=== PATIENT | female | born 1970 | race Caucasian/White ===

== ENCOUNTER 2021-07-15 17:16 | Emergency (ER) | payer OTHER ==
[~2021-07-15] VITALS: Ht 160 cm; Wt 65.8 kg
[2021-07-15] MEDS ORDERED: DICLOFENAC POTA50 MG PO (23:30)
[2021-07-15] MEDS ORDERED: ORPHENADRINE C100 MG PO (23:30)
== END 2021-07-15 23:44 ==
LOC: ER 17:16
DX: S43.014A Anterior dislocation of right humerus, initial encounter (principal); S40.011A Contusion of right shoulder, initial encounter; Y92.832 Beach as the place of occurrence of the external cause; X58.XXXA Exposure to other specified factors, initial encounter